=== PATIENT | female | born 1940 | race Caucasian/White ===

== ENCOUNTER 2017-06-15 12:30 | Day surgery (SDC) | payer MEDICARE, OTHER ==
[~2017-06-15] VITALS: Ht 170.2 cm; Wt 157.0 kg
[~2017-06-15 12:30] MED LIST: ACETAMINOPHN-12.5 ML; Azithromycin250 MG PO; CODACE60 PO; FURO20; FURO20 PO; LISI20 PO; LISI5 PO; METF500; MULTI VITAMIN1 EACH; OXYC10TA19 PO; PREG50 PO; PRESERVISION A1 EACH; SPIR25
== END 2017-06-15 15:25 | disposition home or self-care (01) ==
LOC: ORSCSDS 12:30
PROVIDERS: Internal Medicine Gastroenterology
PROC: 0DBP8ZX Excision of Rectum, Via Natural or Artificial Opening Endoscopic, Diagnostic (ICD-10-PCS; principal; 2017-06-15 14:00)
PROC: 0D5K8ZZ Destruction of Ascending Colon, Via Natural or Artificial Opening Endoscopic (ICD-10-PCS; principal; 2017-06-15 14:00)
PROC: 0DBN8ZX Excision of Sigmoid Colon, Via Natural or Artificial Opening Endoscopic, Diagnostic (ICD-10-PCS; principal; 2017-06-15 14:00)
DX: Z12.11 Encounter for screening for malignant neoplasm of colon (principal); K63.5 Polyp of colon; Q27.33 Arteriovenous malformation of digestive system vessel; K57.30 Diverticulosis of large intestine without perforation or abscess without bleeding; K64.8 Other hemorrhoids; Z86.010 Personal history of colon polyps; I10 Essential (primary) hypertension; G47.33 Obstructive sleep apnea (adult) (pediatric); Z99.81 Dependence on supplemental oxygen; E66.01 Morbid (severe) obesity due to excess calories; Z68.43 Body mass index [BMI] 50.0-59.9, adult; Z87.891 Personal history of nicotine dependence; Z79.899 Other long term (current) drug therapy
CPT/HCPCS: 82947; 88305; J7120

== ENCOUNTER → 2017-11-02 | Outpatient (CLI) | payer MEDICARE, OTHER ==
[2017-11-02 10:21] LABS: BASOPHILS ABSOLUTE AUTO 0.04 K/mm3 (0.00-0.23); BASOPHILS PERCENT AUTO 1 % (0-2); EOSINOPHILS ABSOLUTE AUTO 0.06 K/mm3 (0.00-0.68); EOSINOPHILS PERCENT AUTO 1 % (0-6); Hematocrit 37.3 % (33.0-51.0); IMMATURE GRAN ABSOLUTE AUTO 0.03 K/mm3 (0.00-0.10); IMMATURE GRAN PERCENT AUTO 1 % (0-1); LYMPHOCYTES ABSOLUTE AUTO 0.98 K/mm3 (0.84-5.20); LYMPHOCYTES PERCENT AUTO 23 % (21-46); MONOCYTES ABSOLUTE AUTO 0.32 K/mm3 (0.16-1.47); MONOCYTES PERCENT AUTO 8 % (4-13); Mean Corpuscular HGB 29.3 pg (26.0-34.0); Mean Corpuscular HGB Conc 32.2 g/dL (31.5-36.5); Mean Corpuscular Volume 91 fL (80-100); Mean Platelet Volume 9.4 fL (9.1-12.4); NEUTROPHILS ABSOLUTE AUTO 2.75 K/mm3 (1.96-9.15); NEUTROPHILS PERCENT AUTO 66 % (41-73); Platelet Count 189 K/mm3 (150-400); RDW Coefficient Variation 13.2 % (11.7-14.2); RDW Standard Deviation 43.8 fL (35.1-46.3); Red Blood Cell Count 4.09 M/mm3 (3.80-5.20); White Blood Cell Count 4.18 K/mm3 (4.00-11.30)
[2017-11-02 10:24] LABS: Anion Gap 8 mmol/L (6-16); Blood Urea Nitrogen 19 mg/dL (8-24); Bun/Creatinine Ratio 22.4 (12.0-20.0); CO2, Blood 29 mmol/L (21-32); Calcium, Blood 8.8 mg/dL (8.5-10.1); Chloride, Blood 104 mmol/L (98-108); Creatinine, Blood 0.85 mg/dL (0.40-1.00); Glomerular Filtration Rate >60 (60-); Glucose, Blood 153 mg/dL (70-99); Potassium, Blood 5.2 mmol/L (3.5-5.5); Sodium, Blood 141 mmol/L (136-145)
== END | disposition home or self-care (01) ==
LOC: LAB EV 10:08 → LAB SHORT 10:08
PROVIDERS: Family Medicine
DX: R11.0 Nausea (principal)
CPT/HCPCS: 80048; 85025

== ENCOUNTER → 2018-05-08 | Outpatient (CLI) | payer MEDICARE, OTHER ==
[2018-05-08 09:59] LABS: BASOPHILS ABSOLUTE AUTO 0.03 K/mm3 (0.00-0.23); BASOPHILS PERCENT AUTO 1 % (0-2); EOSINOPHILS ABSOLUTE AUTO 0.06 K/mm3 (0.00-0.68); EOSINOPHILS PERCENT AUTO 2 % (0-6); Hematocrit 36.4 % (33.0-51.0); Hemoglobin 11.6 g/dL (11.5-16.0); IMMATURE GRAN ABSOLUTE AUTO 0.02 K/mm3 (0.00-0.10); IMMATURE GRAN PERCENT AUTO 1 % (0-1); LYMPHOCYTES ABSOLUTE AUTO 1.12 K/mm3 (0.84-5.20); LYMPHOCYTES PERCENT AUTO 31 % (21-46); MONOCYTES ABSOLUTE AUTO 0.38 K/mm3 (0.16-1.47); MONOCYTES PERCENT AUTO 10 % (4-13); Mean Corpuscular HGB 28.2 pg (26.0-34.0); Mean Corpuscular HGB Conc 31.9 g/dL (31.5-36.5); Mean Corpuscular Volume 89 fL (80-100); Mean Platelet Volume 9.3 fL (9.1-12.4); NEUTROPHILS ABSOLUTE AUTO 2.06 K/mm3 (1.96-9.15); NEUTROPHILS PERCENT AUTO 56 % (41-73); Platelet Count 218 K/mm3 (150-400); RDW Coefficient Variation 14.7 % (11.7-14.2); RDW Standard Deviation 47.6 fL (35.1-46.3); Red Blood Cell Count 4.11 M/mm3 (3.80-5.20); White Blood Cell Count 3.67 K/mm3 (4.00-11.30)
== END | disposition home or self-care (01) ==
LOC: LAB SHORT 09:55 → LAB EV 09:55
PROVIDERS: Physician Assistant Medical
DX: R60.9 Edema, unspecified (principal)
CPT/HCPCS: 85025; 85379

== ENCOUNTER → 2019-01-17 | Outpatient (CLI) | payer MEDICARE, OTHER ==
[2019-01-21 15:07] LABS: HPV 16 Negative (Negative); HPV 18 Negative (Negative); HPV OTHER HR TYPES Negative (Negative)
== END | disposition home or self-care (01) ==
LOC: LAB 11:52 → LAB SHORT 11:52
PROVIDERS: Obstetrics & Gynecology Gynecology
DX: Z12.4 Encounter for screening for malignant neoplasm of cervix (principal)
CPT/HCPCS: 87624; G0123

== ENCOUNTER 2020-04-27 07:49 | Day surgery (SDC) | payer MEDICARE, OTHER ==
[~2020-04-27] VITALS: Ht 172.7 cm; Wt 109.0 kg
--- NOTE | 2020-04-27 08:52 | NUR ---
04/27/20 0852 Bree Adhikari UPON ARRIVING TO PRE OP RN ADMINISTERED ONE DROP OF TETRACAINE 0.5% OPHTHALMIC SOLUTION TO THE RIGHT EYE PER DR'S ORDERS. AT 0818 EYE DROP SOAKED PLEDGET PLACED INTO THE BOTTOM EYE LID OF THE RIGHT EYE PER DR'S ORDERS. PT TOLERATED PLEDGET PLACEMENT WELL.
--- NOTE | 2020-04-27 09:47 | NUR ---
04/27/20 0947 Maria Del Rosario Darnell GENTAMYCIN NOT ADDED INTO BSS PER SURGEON'S REQUEST.
[2020-07-16] MEDS ORDERED: FURO40 PO (12:26)
== END 2020-04-27 10:35 | disposition home or self-care (01) ==
LOC: ORSCSDS 07:49
PROVIDERS: Counselor Professional
PROC: 08RJ3JZ Replacement of Right Lens with Synthetic Substitute, Percutaneous Approach (ICD-10-PCS; principal; 2020-04-27 09:15)
DX: H25.11 Age-related nuclear cataract, right eye (principal); I10 Essential (primary) hypertension; E11.36 Type 2 diabetes mellitus with diabetic cataract; G47.33 Obstructive sleep apnea (adult) (pediatric); J44.9 Chronic obstructive pulmonary disease, unspecified; G25.81 Restless legs syndrome; I50.9 Heart failure, unspecified; Z87.891 Personal history of nicotine dependence
CPT/HCPCS: 82947; A9270; J2001; J2250; J7040; V2632

== ENCOUNTER 2020-07-23 09:07 | Day surgery (SDC) | payer MEDICARE, OTHER ==
[~2020-07-23] VITALS: Ht 172.7 cm; Wt 107.8 kg
[~2020-07-23 09:07] MED LIST changes: +FURO40 PO
[2020-07-23] MEDS ORDERED: Acetaminophen325 M1 (10:00)
[2020-07-23] MEDS ORDERED: BUME1 (10:00)
--- NOTE | 2020-07-23 10:11 | NUR ---
07/23/20 1011 CAROLYN MONK ONE ATTEMPT IN RFA MISSED BY JL SECOND SUCCESSFUL IN RAC BY RN PT TOW
== END 2020-07-23 11:36 | disposition home or self-care (01) ==
LOC: ORSCSDS 09:07
PROVIDERS: Internal Medicine Gastroenterology
PROC: 0DBL8ZX Excision of Transverse Colon, Via Natural or Artificial Opening Endoscopic, Diagnostic (ICD-10-PCS; principal; 2020-07-23 10:15)
DX: Z12.11 Encounter for screening for malignant neoplasm of colon (principal); Z86.010 Personal history of colon polyps; D12.3 Benign neoplasm of transverse colon; K57.30 Diverticulosis of large intestine without perforation or abscess without bleeding; K64.8 Other hemorrhoids; I10 Essential (primary) hypertension; Z87.891 Personal history of nicotine dependence; G47.33 Obstructive sleep apnea (adult) (pediatric); Z99.81 Dependence on supplemental oxygen; E66.01 Morbid (severe) obesity due to excess calories; Z68.36 Body mass index [BMI] 36.0-36.9, adult; Z79.899 Other long term (current) drug therapy
CPT/HCPCS: 88305; J2704

== ENCOUNTER 2021-02-17 21:18 | Emergency (ER) | payer MEDICARE, OTHER ==
[~2021-02-17] VITALS: Ht 175.3 cm; Wt 104.3 kg
[~2021-02-17 21:18] MED LIST changes: +Acetaminophen325 M1; +BUME1
[2021-02-17] MEDS ORDERED: Percocet 5-3251 EACH PO (22:45)
[2021-02-17] MEDS ORDERED: [UNRECOGNIZED DRUG - MIXTURE] (23:24)
== END 2021-02-17 23:00 | disposition home or self-care (01) ==
LOC: ER 21:18
DX: M19.011 Primary osteoarthritis, right shoulder (principal); Z88.1 Allergy status to other antibiotic agents; Z88.2 Allergy status to sulfonamides; Z79.899 Other long term (current) drug therapy; E11.42 Type 2 diabetes mellitus with diabetic polyneuropathy; G47.33 Obstructive sleep apnea (adult) (pediatric); I10 Essential (primary) hypertension; M19.90 Unspecified osteoarthritis, unspecified site
CPT/HCPCS: 73030; 96372; 99283-25; A9270; J1170

== ENCOUNTER 2021-02-20 19:47 | Inpatient (IN) | payer MEDICARE, OTHER ==
[~2021-02-20] VITALS: Ht 172.7 cm; Wt 112.2 kg
[~2021-02-20 19:47] MED LIST changes: +Percocet 5-3251 EACH PO; +[UNRECOGNIZED DRUG - MIXTURE]
[2021-02-20] MEDS ORDERED: IVERMECTIN3 MG PO (20:20)
[2021-02-20 20:40] LABS: Hematocrit 36.8 % (33.0-51.0); Hemoglobin 11.9 g/dL (11.5-16.0); Mean Corpuscular HGB 28.7 pg (26.0-34.0); Mean Corpuscular HGB Conc 32.3 g/dL (31.5-36.5); Mean Corpuscular Volume 89 fL (80-100); Mean Platelet Volume 10.3 fL (9.1-12.4); Platelet Count 186 K/mm3 (150-400); RDW Coefficient Variation 13.8 % (11.7-14.2); RDW Standard Deviation 45.1 fL (35.1-46.3); Red Blood Cell Count 4.14 M/mm3 (3.80-5.20); White Blood Cell Count 14.74 K/mm3 (4.00-11.30)
[2021-02-20 21:01] LABS: International Normalized Ratio 1.19; Prothrombin Time Results 12.4 Sec (9.7-11.5)
[2021-02-20 21:11] LABS: Albumin, Blood 2.3 g/dL (3.4-5.0); Albumin/Globulin Ratio 0.5 (0.8-1.8); Bilirubin, Total 2.4 mg/dL (0.1-1.0); Bun/Creatinine Ratio 22.6 (12.0-20.0); Calcium, Blood 8.5 mg/dL (8.5-10.1); Creatinine, Blood 2.12 mg/dL (0.40-1.00); Free Thyroxine 1.4 ng/dL (0.70-1.60); Globulin, Blood 4.5 g/dL (2.2-4.0); Magnesium, Blood 2.5 mg/dL (1.6-2.4); Potassium, Blood 4.3 mmol/L (3.5-5.5); Total Protein, Blood 6.8 g/dL (6.4-8.2); Troponin I 0.142 ng/mL (0.000-0.040)
[2021-02-20 21:15] LABS: Thyroid Stimulating Hormone 3.38 uIU/mL (0.360-4.800)
[2021-02-20 22:37] LABS: BAND PERCENT MAN 29 % (0-8); BASOPHILS PERCENT MAN 0 % (0-2); EOSINOPHILS PERCENT MAN 0 % (0-6); LYMPHOCYTES ABSOLUTE MAN 0.58 K/mm3 (0.84-5.20); LYMPHOCYTES PERCENT MAN 4 % (21-46); MONOCYTES ABSOLUTE MAN 0.14 K/mm3 (0.16-1.47); MONOCYTES PERCENT MAN 1 % (4-13); SEG NEUTROPHILS PERCENT MAN 66 % (41-73); TOTAL CELLS COUNTED 100
[2021-02-21] MEDS ORDERED: CODACE30 PO (01:24)
[2021-02-21 03:34] LABS: Influenza A, PCR NEGATIVE (NEGATIVE); Influenza B, PCR NEGATIVE (NEGATIVE); Resp Syncytial Virus, PCR NEGATIVE (NEGATIVE); SARS-Cov-2 (COVID-19) PCR, MMC NEGATIVE (NEGATIVE)
[2021-02-21 03:57] LABS: BASOPHILS ABSOLUTE AUTO 0.02 K/mm3 (0.00-0.23); BASOPHILS PERCENT AUTO 0 % (0-2); EOSINOPHILS PERCENT AUTO 0 % (0-6); Hematocrit 35.6 % (33.0-51.0); Hemoglobin 11.4 g/dL (11.5-16.0); IMMATURE GRAN ABSOLUTE AUTO 0.12 K/mm3 (0.00-0.10); IMMATURE GRAN PERCENT AUTO 1 % (0-1); LYMPHOCYTES ABSOLUTE AUTO 0.51 K/mm3 (0.84-5.20); LYMPHOCYTES PERCENT AUTO 4 % (21-46); MONOCYTES ABSOLUTE AUTO 0.63 K/mm3 (0.16-1.47); MONOCYTES PERCENT AUTO 5 % (4-13); Mean Corpuscular Volume 91 fL (80-100); Mean Platelet Volume 10.6 fL (9.1-12.4); NEUTROPHILS ABSOLUTE AUTO 11.94 K/mm3 (1.96-9.15); NEUTROPHILS PERCENT AUTO 90 % (41-73); Platelet Count 174 K/mm3 (150-400); RDW Coefficient Variation 13.6 % (11.7-14.2); Red Blood Cell Count 3.93 M/mm3 (3.80-5.20); White Blood Cell Count 13.22 K/mm3 (4.00-11.30)
[2021-02-21 04:25] LABS: Albumin, Blood 2.2 g/dL (3.4-5.0); Albumin/Globulin Ratio 0.5 (0.8-1.8); Bilirubin, Total 2.1 mg/dL (0.1-1.0); Bun/Creatinine Ratio 22.3 (12.0-20.0); Calcium, Blood 8.4 mg/dL (8.5-10.1); Creatinine, Blood 2.42 mg/dL (0.40-1.00); Globulin, Blood 4.4 g/dL (2.2-4.0); Potassium, Blood 4.6 mmol/L (3.5-5.5); Total Protein, Blood 6.6 g/dL (6.4-8.2)
[2021-02-21 04:40] LABS: Free Thyroxine 1.25 ng/dL (0.70-1.60); Thyroid Stimulating Hormone 2.9 uIU/mL (0.360-4.800)
--- NOTE | 2021-02-21 06:00 | NUR ---
END OF SHIFT SUMMARY: PATIENT HAS BEEN GIVEN ORAL B ADIA, PULSE RATE STILL IN THE 100'S -120'S AFIB. BNP ELEVATED, DENIES CHEST PAIN. ENDORSES SOB AND RIB PAIN WITH DEEP BREATHING, BLOOD PRESSURE HAS BEEN SOFT WHICH PREVENTED CARDIZEM DRIP IN ED. POWERGLIDE PATIENT HAS BEEN USING THE CALL LIGHT APPROPRIATELY, HAS BEEN ALERT AND ORIENTED ANXIETY HAS BEEN DECREASE, WHICH PATIENT IS NOW SLEEPING. SHE RECIEVED 2 1L BOLUS IN THE ED. PATIENT IS CONCERED ABOUT BM, PAIN, AND BREATHING. PATIENT ON 4L NC AND SPO2 >94%, CPAP AT NIGHT AWAITING HER PERSONAL MASK FOR USE. DESATURATES FAST WITHOUT O2. HOME DEPENEDENT 3L. WILL CONTINUE TO MONITOR
[2021-02-21 13:54] LABS: Source, Urine Clean Catch
[2021-02-21 13:59] LABS: Appearance, Urine Clear (Clear); Blood, Urine 1+ (Neg); Color, Urine Yellow (P-Yellow); Glucose Qualitative, Urine Neg (Neg); Ketones, Urine Neg (Neg); Leukocyte Esterase, Urine 1+ (Neg); Nitrite, Urine Neg (Neg); Protein, Urine 3+ (Neg); Urobilinogen, Urine 1+ (Normal)
[2021-02-21 14:19] LABS: Bilirubin, Urine 1+ (Neg)
[2021-02-21 14:20] LABS: Amorphous Mod (0-Heavy); Bacteria Mod /hpf; Mucus Light (0-Heavy); Squamous Epithelial Cells Few /hpf (Few)
[2021-02-21 16:44] LABS: BASOPHILS ABSOLUTE AUTO 0.04 K/mm3 (0.00-0.23); BASOPHILS PERCENT AUTO 0 % (0-2); EOSINOPHILS ABSOLUTE AUTO 0.02 K/mm3 (0.00-0.68); EOSINOPHILS PERCENT AUTO 0 % (0-6); Hematocrit 37.2 % (33.0-51.0); Hemoglobin 11.9 g/dL (11.5-16.0); IMMATURE GRAN ABSOLUTE AUTO 0.07 K/mm3 (0.00-0.10); IMMATURE GRAN PERCENT AUTO 1 % (0-1); LYMPHOCYTES ABSOLUTE AUTO 0.58 K/mm3 (0.84-5.20); LYMPHOCYTES PERCENT AUTO 5 % (21-46); MONOCYTES ABSOLUTE AUTO 0.64 K/mm3 (0.16-1.47); MONOCYTES PERCENT AUTO 5 % (4-13); Mean Corpuscular HGB 28.7 pg (26.0-34.0); Mean Corpuscular Volume 90 fL (80-100); Mean Platelet Volume 10.6 fL (9.1-12.4); NEUTROPHILS ABSOLUTE AUTO 11.55 K/mm3 (1.96-9.15); NEUTROPHILS PERCENT AUTO 90 % (41-73); Platelet Count 210 K/mm3 (150-400); RDW Coefficient Variation 13.6 % (11.7-14.2); RDW Standard Deviation 44.9 fL (35.1-46.3); Red Blood Cell Count 4.14 M/mm3 (3.80-5.20)
[2021-02-21 16:55] LABS: Albumin, Blood 2.4 g/dL (3.4-5.0); Albumin/Globulin Ratio 0.5 (0.8-1.8); Bilirubin, Total 1.7 mg/dL (0.1-1.0); Calcium, Blood 8.6 mg/dL (8.5-10.1); Globulin, Blood 4.5 g/dL (2.2-4.0); Potassium, Blood 4.9 mmol/L (3.5-5.5); Total Protein, Blood 6.9 g/dL (6.4-8.2)
--- NOTE | 2021-02-21 18:08 | NUR ---
SHIFT SUMMARY: PT ALERT WITH MILD CONFUSION, CAN BE SELECTIVE WITH CARE BUT IS COOPERATIVE. PT MAINTAINING O2 SATS >92% ON 4 L/MIN VIA HUMIDIFIED NC, DOES REPORT MILD SOB WHEN BED RECLINED FOR REPOSITIONING/CARE. AFIB CONTINUES ON MONITOR, PT DENIES CHEST PAIN. VEGETARIAN DIET. INDWELLING PIMENTEL PLACED TODAY, URINE SAMPLE WAS COLLECTED AND SENT TO LAB. PT AMBULATES SLOWLY TO/FROM RESTROOM FOR BM AND BATH USING FWW AND 2 PERSON ASSIST, C/O LEFT LEG WEAKNESS/NEUROPATHY. NS INFUSION INITIATED PER DR VENTURA, RATE INCREASED TO 75 ML/HR. CURRENTLY, PT RESTING QUIETLY IN BED WITH CALL LIGHT WITHIN REACH. WILL CONTINUE TO MONITOR AND TREAT ACCORDINGLY UNTIL CHANGE OF SHIFT.
--- NOTE | 2021-02-21 22:34 | NUR ---
ASSUMED CARE OF PT AT 1900. AXO 3-4 BUT HAS PERIODS OF CONFUSION, STILL ATTRIBUTES IT TO BEING TIRED. SLURRED/SLOW SPEECH, ALL OTHER NEUROS WNL. GENERALIZED WEAKNESS T/O. PATIENT HAS CONCERN OF ASPIRATION SHE FEELS FOOD GETS STUCK. OBSERVED BEDSIDE SWALLOW, PATIENT SWALLOWS WATER WITH A BUNCH OF AIR, RESULTING IN BELCHING. MADE PATIENT NPO FOR TONIGHT AND WILL PASS IT ALONG TO DAYSHIFT TO OBTAIN SPEECH THERAPY EVAL (PER TLAANG). MAINTAINS ABOVE 95% ON 4L NC, LS WHEEXE ON TOP AND DIM AT BASES. NONPRODUCTIVE COUGH NOTED. AFIB ON TELEMETRY AVG 112 WITH WEAK +1 PULSES BL PEDAL/RADIAL. BLE POOR CIRCULATION. DENIES ANY CP. BLE +1 EDEMA. PATIENT C/O NAUSEA - TREATED PER EMAR AND PATIENT REPORTS RELIEF. URINARY CATHETER WITH VERY LITTLE URINE RETURN. WILL OBTAIN BLADDER SCAN JUST TO BE SURE IF NO FURTHER OUTPUT. PATIENT REPORTS PAIN IN R SHOULDER AND L HIP (CHRONIC FOR PT). PATIENT VERY PARTICULAR WITH HOW THINGS ARE DONE/PLACED AND CAN BE FOUND FALLING ASLEEP MID CONVERSATION. WILL UPDATE CHANGES OCCUR.
[2021-02-22 04:18] LABS: BASOPHILS ABSOLUTE AUTO 0.05 K/mm3 (0.00-0.23); BASOPHILS PERCENT AUTO 0 % (0-2); EOSINOPHILS ABSOLUTE AUTO 0.01 K/mm3 (0.00-0.68); EOSINOPHILS PERCENT AUTO 0 % (0-6); Hematocrit 40.1 % (33.0-51.0); Hemoglobin 12.7 g/dL (11.5-16.0); IMMATURE GRAN ABSOLUTE AUTO 0.14 K/mm3 (0.00-0.10); IMMATURE GRAN PERCENT AUTO 1 % (0-1); LYMPHOCYTES ABSOLUTE AUTO 0.39 K/mm3 (0.84-5.20); LYMPHOCYTES PERCENT AUTO 2 % (21-46); MONOCYTES ABSOLUTE AUTO 0.91 K/mm3 (0.16-1.47); MONOCYTES PERCENT AUTO 5 % (4-13); Mean Corpuscular HGB 28.5 pg (26.0-34.0); Mean Corpuscular HGB Conc 31.7 g/dL (31.5-36.5); Mean Corpuscular Volume 90 fL (80-100); Mean Platelet Volume 10.7 fL (9.1-12.4); NEUTROPHILS ABSOLUTE AUTO 15.64 K/mm3 (1.96-9.15); NEUTROPHILS PERCENT AUTO 91 % (41-73); Platelet Count 228 K/mm3 (150-400); RDW Coefficient Variation 13.5 % (11.7-14.2); RDW Standard Deviation 45.1 fL (35.1-46.3); Red Blood Cell Count 4.45 M/mm3 (3.80-5.20); White Blood Cell Count 17.14 K/mm3 (4.00-11.30)
[2021-02-22 05:03] LABS: Magnesium, Blood 2.7 mg/dL (1.6-2.4)
[2021-02-22 05:55] LABS: Alanine Aminotransfer (ALT/SGP 369 U/L (12-78); Albumin, Blood 2.3 g/dL (3.4-5.0); Albumin/Globulin Ratio 0.6 (0.8-1.8); Alk Phos 300 U/L (50-136); Anion Gap 11 mmol/L (6-16); Aspartate Aminotrans (AST/SGOT 769 U/L (12-37); Blood Urea Nitrogen 77 mg/dL (8-24); Bun/Creatinine Ratio 22.4 (12.0-20.0); CO2, Blood 25 mmol/L (21-32); Calcium, Blood 8.1 mg/dL (8.5-10.1); Chloride, Blood 94 mmol/L (98-108); Creatinine, Blood 3.44 mg/dL (0.40-1.00); Globulin, Blood 3.8 g/dL (2.2-4.0); Glomerular Filtration Rate 13 (60-); Glucose, Blood 121 mg/dL (70-99); Sodium, Blood 130 mmol/L (136-145); Total Protein, Blood 6.1 g/dL (6.4-8.2)
[2021-02-22 06:02] LABS: Potassium, Blood 6.1 mmol/L (3.5-5.5)
[2021-02-22 06:03] LABS: Phosphorus, Blood 9.8 mg/dL (2.5-4.9)
--- NOTE | 2021-02-22 10:00 | NUR ---
CARE ASSUMPTION PT A&O TO SELF & YR, ALSO REPORTING "IT'S ALMOST JARON." PT DENIES KNOWING WHERE SHE IS, STATING, "MAY, A SCHOOL?" PT SPEAKING URGENTLY WHEN MAKING SIMPLE REQUESTS. PT VSS. SPO2 > 92% ON 4L NC. MONITOR SHOWING AFIB, HR 90's-120's. PT TOLERATING PO INTAKE THIS AM W/ NO DIFFICULTY. NS GTT INFUSING PER ORDERS. PIMENTEL CATH PATENT & DRAINING SMALL AMOUNT ALISA COLORED URINE. WILL CONTINUE TO MONITOR & PROVIDE CARE.
--- NOTE | 2021-02-22 16:24 | NUR ---
I called and spoke with the patient's daughter, Lidya, who lives in [place]. She states the patient is pretty independent but does use a walker, oxygen, and cpap at home. The patient lives with her son, Nazario [phone] who helps some with ADLs but, the patient normally does not need a lot of help. Patient's son helps with transportation sometimes, but most of the time the patient will use dial a ride because of vehicle accessibility. The patient has never received home health services but, has previously stayed at [facility] (per the daughter) for 90 days. I called and left a voicemail on the son's cell phone requesting a call back. I have went to visit the patient yesterday and today and the patient was in the restroom at the time.
--- NOTE | 2021-02-22 18:23 | NUR ---
SHIFT SUMMARY PT CONTINUES TO BE A&O TO SELF & YEAR. PT ORIENTED TO FAMILY THAT VISITED @ BEDSIDE TODAY. PT VSS. SPO2 > 92% ON 4L NC. MONITOR SHOWING AFIB, HR 90's-120's. NS GTT INFUSING PER ORDERS. PIMENTEL CATH DRAINING MINIMAL AMOUNT OF DARK YELLOW URINE IN PIMENTEL BAG. 24 HR URINE COLLECTION IN PROCESS. MD VENTURA CONSULTING. WILL CONTINUE TO MONITOR UNTIL REPORT OFF TO DAY SHIFT RN.
[2021-02-23 04:13] LABS: Hematocrit 47.1 % (33.0-51.0); Hemoglobin 14.6 g/dL (11.5-16.0)
[2021-02-23 05:17] LABS: Albumin, Blood 2.4 g/dL (3.4-5.0); Albumin/Globulin Ratio 0.6 (0.8-1.8); Bilirubin, Direct 1.6 mg/dL (0.0-0.3); Bilirubin, Indirect 0.4 mg/dL (0.1-0.7); Bun/Creatinine Ratio 22.5 (12.0-20.0); Calcium, Blood 7.4 mg/dL (8.5-10.1); Creatinine, Blood 4.45 mg/dL (0.40-1.00); Globulin, Blood 3.9 g/dL (2.2-4.0); Magnesium, Blood 2.9 mg/dL (1.6-2.4); Total Protein, Blood 6.3 g/dL (6.4-8.2); Uric Acid, Blood 10.9 mg/dL (2.6-6.0)
--- NOTE | 2021-02-23 05:18 | NUR ---
SHIFT SUMMARY PT ALERT AND ORIENTED X2. PT ON 4L NC MAINTAINING SATS OVER 92%. ON CPAP WHILE SLEEPING. HR AFIB 90'S TO 110'S. BP SOFT TO START SHIFT. TRENDED UPWARDS THROUGHOUT THE EVENING. POWERGLIDE PATENT BUT NO LONGER DRAWS. PT ANXIOUS AT TIMES, RANDOMLY CALLING OUT FOR HELP. NONSENSICAL SPEECH. 24 HOUR URINE COLLECTION IN PROGRESS, ENDING AT 02/23 1230. PT LETHARGIC THIS EVENING, TYPICALLY FALLING BACK TO SLEEP QUICKLY AFTER CARE IS COMPLETE. PT IN BED SLEEPING WITH CALL ALARM AT SIDE. WILL CONTINUE TO MONITOR UNTIL REPORT GIVEN
[2021-02-23 06:01] LABS: Phosphorus, Blood 11.7 mg/dL (2.5-4.9); Potassium, Blood 6.9 mmol/L (3.5-5.5)
[2021-02-23 08:11] LABS: HBSAG SCREEN Negative (Negative); HEP A AB, IGM Negative (Negative); HEP B CORE AB, IGM Negative (Negative); HEP C VIRUS AB 0.1 (0.0-0.9)
--- NOTE | 2021-02-23 09:00 | NUR ---
CARE ASSUMPTION / UPDATE UPON CARE ASSUMPTION, PT LETHARGIC, HAVING DIFFICULTY OPENING EYES WHEN PROMPTED. PT ABLE TO OPEN EYES BUT STARES OFF. PT UNABLE TO SQUEEZE HANDS WHEN ASKED TO SQUEEZE RN's HANDS. PT W/ NO URINARY OUTPUT REPORTED OVER NIGHT. ONLY APPROX 10-20MLS YELLOW/BROWN URINE NOTED IN PIMENTEL BAG ON ICE FOR 24 HR URINE. MD LOPEZ TO PT BEDSIDE W/ ORDERS FOR STAT BLOOD CX's, LACTIC ACID, & AMMONIA LEVELS WELL CT CHEST/ABD. W/ CALL TO PT's SON TO UPDATE ON PT STATUS. PT THEN MADE DNR STATUS. MORE CARE ORDERS FOLLOWING, SEE ORDERS.
--- NOTE | 2021-02-23 10:10 | NUR ---
Echocardiogram completed.
--- NOTE | 2021-02-23 10:11 | NUR ---
UPDATE PT OPENS EYES, SPEAKS NONSENSICALLY, HALLUCINATING IN RM. LACTIC ACID & AMMONIA LEVELS ELEVATED. K LEVEL REMAINS HIGH. MD LOPEZ W/ ORDER FOR 500 ML NS BOLUS & ADDITIONAL ORDERS, SEE ORDERS. NS BOLUS INITIATED. PT NOT TOLERATING FLUID WELL, LUNG SOUNDS COARSE & SPO2 80's. 4L NC INCREASED TO 8L HI-DARBY NC FOR SPO2 > 92%. NS BOLUS STOPPED AFTER APPROX 250 MLS INFUSED. PT BP LOW. MD LOPEZ WITH PREVIOUS ORDER FOR NGT, BUT STATES TO HOLD OFF ON INSERTION UNTIL FURTHER CARE DISCUSSED W/ PT SON. PALLIATIVE CARE TO ASSIST.
--- NOTE | 2021-02-23 13:19 | NUR ---
COMFORT CARE PT DIFFICULT TO AROUSE, MOANS IN RESPONSE TO VERBAL STIMULI W/ TOUCH, DOES NOT OPEN EYES. PT TRANSITIONED FROM 14L HI-DARBY NC TO CPAP W/ 15L BLEED IN FOR SPO2 > 90%. RR BECOMING MORE SLOW & IRREGULAR. PT NOW COMFORT CARE, STILL AWAITING FAMILY ARRIVAL TO BEDSIDE.
--- NOTE | 2021-02-23 13:22 | NUR ---
Met with pt and bedside RN. Pt on bipap at this time, as she is requiring increasing oxygen support. However, her 02 sats are holding arounf 90%, and she has no s/s of distress, pain, air hunger at this time. Spoke to pt's son, he states his sister is enroute by car; should be here before 1500 today. Pt's son Nazario requests we hold off on comfort care until he and his sister arrive, but if patient exhibits any s/s of air hunger, pain, agitation prior to their arrival, then to implement comfort care at that time.
--- NOTE | 2021-02-23 15:43 | NUR ---
POWERGLIDE DRESSING NOT CHANGED TODAY PER PRIMARY RN D/T PT'S DECLINING STATUS AND BEING PLACED ON COMFORT CARE. DRESSING INTACT AND WNL AT THIS TIME.
--- NOTE | 2021-02-23 16:41 | NUR ---
FAMILY TO BEDSIDE PT EYES OPEN FOR FAMILY AT BEDSIDE. PT UNABLE TO FOCUS GAZE ON FAMILY MEMBERS, BUT AWAKE FOR VISIT. FAMILY REMAINS AT PT BEDSIDE, SHARING STORIES & REMINISCING W/ PT. PALLIATIVE CARE RN TO BEDSIDE. FAMILY TAKING TIME W/ PT.
--- NOTE | 2021-02-23 17:23 | NUR ---
Pt's family have arrived, and they are gathered at bedside. Pt is opening her eyes, making eye contact with family. She remains on cpap for now, as they are waiting for "a couple more" relatives. However, she does not seem to be in any distress at this time. Bedside RN will continue to monitor for changes and medicate as appropriate.
--- NOTE | 2021-02-23 18:42 | NUR ---
END OF SHIFT NOTE PT WAKING UP MORE FOR FAMILY, ABLE TO SAY SOME WORDS, AND MAKE SOME REQUESTS LIKE "WATER". PT PROVIDED W/ ORAL SPONGES & SIPS OF WATER W/ A SPOON. PT ALERT FOR SOME TIME, LOOKING FROM ONE FAMILY MEMBER TO ANOTHER, LISTENING TO THEM SPEAK TO HER & TO EACH OTHER. PT GIVEN 1 DOSE OF SL MORPHINE FOR AIR HUNGER X1 THIS SHIFT. PT OTHERWISE, CALM IN NO DISTRESS. PT TIRING NOW, GOING BACK TO SLEEP. PT FAMILY REMAINS AT BEDSIDE. WILL REPORT OFF TO NOC SHIFT RN.
--- NOTE | 2021-02-24 06:03 | NUR ---
SHIFT SUMMARY PT MENTATION REMAINED THE SAME T/O MOST OF THE SHIFT, SHE WOULD LOOK AT NURSING STAFF AND FAMILY WHEN THEY GOT CLOSE AND TALKED WITH HER BUT HER RESPONSES WERE MINIMAL IF ANY, USUALLY A SINGLE WORD OR A GRIMMACE WHEN REPOSITIONING. PT REPOSITIONED FOR HER/FAMILY COMFORT, MEDICATED 1X FOR PAIN/DISCOMFORT. FAMILY EDUCATED ON CURRENT DISEASE PROCESS. CPAP REMAINED IN PLACE T/O THE SHIFT. FLUIDS STOPPE DUE TO CHANGE IN COMFORT CARE STATUS DURING PRIOR SHIFT, NO URINE OUTPUT THIS SHIFT THOUGH THERE WAS A FEW ML OF URINE IN THE CATHETER TUBING. PT DOES NOT APPEAR TO BE IN ANY DISTRESS, WILL CONTINUE TO OFFER COMFORT/SUPPORT TO PATIENT AND FAMILY PRN. WILL CONTINUE TO MONITOR AND REPORT TO DAY RN.
--- NOTE | 2021-02-24 06:34 | NUR ---
FLUID ORDER PER PRIOR DAY RN REPORT, PT WAS GIVEN A BOLUS OF FLUIDS WHICH MADE HER LUNG SOUNDS WORSE, MAINTENANCE SODIUM BICARB WAS RUNNING AT SHIFT CHANGE AND PER DAY RN REPORT WAS ABLE TO BE STOPPED. PT LS WERE VERY RASPY AT INITIAL CHECK, FLUID WAS STOPPED SHORTLY BEFORE MIDNIGHT WHILE REPOSITIONING. AFTER STOPPING FLUIDS, PT LS SLOWLY IMPROVED T/O THE REST OF THE SHIFT. AT FINAL CHECK, CRACKLES WERE NO LONGER AUDIBLE WHILE STANDING CLOSE TO THE PATIENT. WILL CONFIRM WITH ONCOMING DAY RN WHETHER TO HOLD FLUIDS WITH ATTENDING DR OR NOT.
--- NOTE | 2021-02-24 08:58 | NUR ---
IV morphine given prior to switching pt from cpap to nasal canula.
--- NOTE | 2021-02-24 10:48 | NUR ---
PRN IV Morphine given for air hunger. 2 daughters at bedside.
--- NOTE | 2021-02-24 16:18 | NUR ---
Pt is A&O 1-3, more oriented at times on and off. Pleasant with cares. VSS on 2L, BP elevated in AM and prn hydralazine was given. IV abx continued per orders. Pt had meeting with palliative care today and son did come in for the visit. Pt does not want feeding tube. Pt failed swallow eval with MOLDER SETTER today. Pt will have an another eval tomorrow and then son will make a decision if he want to move forward with comfort care at that time. Large BM today.
--- NOTE | 2021-02-24 16:35 | NUR ---
A few visits today pt resting comfortably family at bedside. Will contine to monitor. updated care managers pt may not tolerate transfer home. Will revaluate.
--- NOTE | 2021-02-24 16:38 | NUR ---
Pt has comfort care orders. IV morphine given several times today for air hunger. Family has been present at bedside throughout the day. Pt appears comfortable using pillows and foam pad.
--- NOTE | 2021-02-24 19:35 | NUR ---
PATIENT FAMILY LEFT FROM BEDSIDE AT SHIFT REPORT, PATIENT O2 TITRATED FROM 6L TO 5L RR 30-40, LUNGS ARE COARSE NO SIGNS OF INCREASE SECRETIONS, PATIENT IS RESTING COMFORTABLY, CATH CARE COMPLETE.
--- NOTE | 2021-02-24 21:20 | NUR ---
PATIENT EXHIBITING AIR HUNGER RR 50'S ROXANOL 10MG GIVEN
--- NOTE | 2021-02-25 01:23 | NUR ---
PATIENT HAS PASSED AT 0122 WHILE THIS RN IN THE ROOM. CALLING MD AND FAMILY TO INFORM
--- NOTE | 2021-02-25 01:28 | NUR ---
CALLED SON MAXI SANTIAGO AT [phone] AND LET HIM KNOW HIS MOM HAS PASSED, HE AGREED TO CALL THE REST OF THE FAMILY WHO WILL BE COMING IN TO SAY THEIR GOODBYES.
[2021-02-25 13:11] LABS: A/G RATIO 0.8 (0.7-1.7); ALBUMIN 2.6 g/dL (2.9-4.4); ALPHA-1-GLOBULIN 0.5 g/dL (0.0-0.4); GAMMA GLOBULIN 0.9 g/dL (0.4-1.8); GLOBULIN, TOTAL 3.5 g/dL (2.2-3.9); IMMUNOGLOBULIN A, QN, SERUM 572 mg/dL (64-422); IMMUNOGLOBULIN G, QN, SERUM 804 mg/dL (586-1602); IMMUNOGLOBULIN M, QN, SERUM 25 mg/dL (26-217); M-SPIKE Not Observed g/dL (Not Observed); PROTEIN, TOTAL, SERUM 6.1 g/dL (6.0-8.5)
[2021-02-28 07:08] LABS: ANTIGLOMERULAR BM AB 3 units (0-20)
[2021-02-28 13:08] LABS: ANA DIRECT Negative (Negative); ANTIMYELOPEROXIDASE (MPO) ABS <9.0 U/mL (0.0-9.0); ANTIPROTEINASE 3 (PR-3) ABS <3.5 U/mL (0.0-3.5); ATYPICAL PANCA <1:20 titer (Neg:<1:20); CYTOPLASMIC (C-ANCA) <1:20 titer (Neg:<1:20); PERINUCLEAR (P-ANCA) <1:20 titer (Neg:<1:20)
== END 2021-02-25 04:30 | DRG 871 ==
LOC: ER 19:47 → PCU 19:48 → ER 02-21 00:07 → PCU 02-21 00:07
PROVIDERS: Emergency Medicine; Hospitalist; Internal Medicine Nephrology; ADMIT Internal Medicine
PROC: 5A09357 Assistance with Respiratory Ventilation, Less than 24 Consecutive Hours, Continuous Positive Airway Pressure (ICD-10-PCS; principal; 2021-02-23)
DX: A41.9 Sepsis, unspecified organism (principal); G92.8 Other toxic encephalopathy; N17.0 Acute kidney failure with tubular necrosis; K72.00 Acute and subacute hepatic failure without coma; E72.20 Disorder of urea cycle metabolism, unspecified; J96.11 Chronic respiratory failure with hypoxia; N39.0 Urinary tract infection, site not specified; E87.2 Acidosis; J98.11 Atelectasis; R18.8 Other ascites; E87.1 Hypo-osmolality and hyponatremia; Z66 Do not resuscitate; R65.20 Severe sepsis without septic shock; Z51.5 Encounter for palliative care; M41.84 Other forms of scoliosis, thoracic region; M51.34 Other intervertebral disc degeneration, thoracic region; K57.30 Diverticulosis of large intestine without perforation or abscess without bleeding; K40.90 Unilateral inguinal hernia, without obstruction or gangrene, not specified as recurrent; K80.20 Calculus of gallbladder without cholecystitis without obstruction; G47.33 Obstructive sleep apnea (adult) (pediatric); I27.20 Pulmonary hypertension, unspecified; Z20.822 Contact with and (suspected) exposure to COVID-19; E11.40 Type 2 diabetes mellitus with diabetic neuropathy, unspecified; G89.4 Chronic pain syndrome; E78.5 Hyperlipidemia, unspecified; Z98.890 Other specified postprocedural states; M54.59 Other low back pain; Z88.2 Allergy status to sulfonamides; Z79.899 Other long term (current) drug therapy; Z88.0 Allergy status to penicillin; K59.00 Constipation, unspecified; E87.5 Hyperkalemia; E88.09 Other disorders of plasma-protein metabolism, not elsewhere classified; D64.9 Anemia, unspecified; Z98.51 Tubal ligation status; Z96.643 Presence of artificial hip joint, bilateral; R34 Anuria and oliguria
CPT/HCPCS: 0241U; 36415; 71045; 71250; 74176; 76705; 76770; 80053; 80069; 80074; 81001; 82140; 82248; 82550; 82784; 83516; 83520; 83605; 83690; 83735; 83880; 84100; 84132; 84145; 84165; 84439; 84443; 84484; 84550; 85014; 85018; 85025; 85610; 86038; 86256; 86334; 87040; 87086; 87184; 93005; 93010; 93308; 94760; 94762; 96365; 96367; 96372; 96375; 99285-25; A9270; C1751; G0378; J0456; J0696; J1644; J1815; J2270; J2405; J3370; J7030; J7040; J7050; J7070; P9041